=== PATIENT | male | born 1995 | race Hispanic/Latino ===

== ENCOUNTER 2017-08-10 17:51 | Emergency (ER) | payer OTHER ==
[~2017-08-10] VITALS: Ht 177.8 cm; Wt 78.0 kg
[~2017-08-10 17:51] MED LIST: NAPROSYN375 MG PO; NASONEX50 MCG/AC; NO HOME MEDS; PROVENTIL HFA IN; TESSALON200 MG PO; ZPAK PO; [UNRECOGNIZED DRUG - REMARK]
[2017-08-10 17:56] VITALS: BP 145/94
[2017-08-10] MEDS ORDERED: ADDERALL30 MG PO (18:04)
== END 2017-08-10 19:52 | disposition left against medical advice (07) | DRG 951 ==
LOC: ED 17:51
DX: Z87.19 Personal history of other diseases of the digestive system (principal); Z91.19 Patient's noncompliance with other medical treatment and regimen; R10.12 Left upper quadrant pain; R31.9 Hematuria, unspecified

== ENCOUNTER 2018-01-14 10:34 | Emergency (ER) | payer SELFPAY ==
[~2018-01-14] VITALS: Ht 177.8 cm; Wt 70.0 kg
[~2018-01-14 10:34] MED LIST changes: +ADDERALL30 MG PO
[2018-01-14 11:16] LABS: INFLUENZA A NONE DETECTED (NONE DETECT); INFLUENZA B NONE DETECTED (NONE DETECT)
[2018-01-14] MEDS ORDERED: AUGMENTIN875TAB PO (11:23)
[2018-01-14 11:24] VITALS: BP 131/90
== END 2018-01-14 11:30 | disposition home or self-care (01) | DRG 153 ==
LOC: ED 10:34
PROVIDERS: Family Medicine
DX: J02.0 Streptococcal pharyngitis (principal); R50.9 Fever, unspecified; R51 Headache; R05 Cough; R53.81 Other malaise

== ENCOUNTER 2018-04-12 12:51 | Emergency (ER) | payer SELFPAY ==
[~2018-04-12] VITALS: Ht 177.8 cm; Wt 84.0 kg
[~2018-04-12 12:51] MED LIST changes: +AUGMENTIN875TAB PO
[2018-04-12] MEDS ORDERED: SLEEP MED (12:59)
[2018-04-12 14:00] VITALS: BP 116/63
== END 2018-04-12 14:00 | disposition home or self-care (01) | DRG 605 ==
LOC: ED 12:51
DX: S91.331A Puncture wound without foreign body, right foot, initial encounter (principal); F90.9 Attention-deficit hyperactivity disorder, unspecified type; W22.8XXA Striking against or struck by other objects, initial encounter; Y92.009 Unspecified place in unspecified non-institutional (private) residence as the place of occurrence of the external cause